=== PATIENT | female | born 1940 | race Asian ===

== ENCOUNTER 2017-07-31 07:52 | Emergency (ER) | payer MEDICARE, OTHER ==
[2017-07-31] MEDS: ACETAMINOPHEN 500 MG TAB PO (08:24)
[2017-07-31] MEDS: IPRATROPIUM (NEB) 0.5 MG/2.5 ML AMP HHN (09:07)
[2017-07-31] MEDS: ALBUTEROL 0.083% (NEB) 2.5 MG/3 ML AMP HHN (09:07)
== END 2017-07-31 09:32 | disposition home or self-care (01) ==
LOC: FTE 07:52
DX: R05 Cough (principal); J45.909 Unspecified asthma, uncomplicated; I10 Essential (primary) hypertension
CPT/HCPCS: 71045; 94664; 99284-25